=== PATIENT | female | born 1975 | race Caucasian/White ===

== ENCOUNTER 2018-01-21 17:42 | Emergency (ER) | payer BC ==
[~2018-01-21] VITALS: Ht 157.5 cm; Wt 64.9 kg
[~2018-01-21 17:42] MED LIST: ESCITALOPRAM OX20 MG PO; REBIF REBI44 MCG/0.5 SC; VITAMIN D31000 UNI2 PO
[2018-01-21 19:13] LABS: HEMOGLOBIN 12.4 G/DL (11.9-15.5); MCH 30.5 PG (29.0-34.0); MCHC 32.6 G/DL (30.0-36.0); MCV 93.4 FL (83-99); PLATELET COUNT 272 K/uL (156-360); RBC DIS.WIDTH-CV 12.6 % (11.8-14.6); RBC DIS.WIDTH-SD 43.5 % (39-53); RED BLOOD COUNT 4.07 M/uL (3.80-5.20); WHITE BLOOD COUNT 7.4 K/uL (4.1-10.2)
[2018-01-21 19:28] LABS: CHLORIDE 108 mEq/L (99-109); POTASSIUM 4.6 mEq/L (3.7-5.4); SODIUM 142 mEq/L (136-147)
[2018-01-21 19:30] LABS: GLUCOSE 93 mg/dL (70-99)
[2018-01-21 19:34] LABS: CREATININE 0.8 mg/dL (0.6-1.3); GFR ESTIMATE (CALCULATED) > 59 mL/min/
[2018-01-21 19:35] LABS: UREA NITROGEN (BUN) 16 mg/dL (9-23)
[2018-01-21 19:39] LABS: TROP-I INTERPRETATION NEGATIVE; TROPONIN-I < 0.01 ng/mL (0.0-0.30)
[2018-01-21 20:52] LABS: ALBUMIN 4.2 g/dL (3.2-4.8)
[2018-01-21 20:55] LABS: TOTAL PROTEIN 7.8 g/dL (6.4-8.3)
[2018-01-21 20:57] LABS: TOTAL BILIRUBIN 0.1 mg/dL (0.0-1.0)
[2018-01-21 20:58] LABS: ALKALINE PHOSPHATASE 68 IU/L (3-129)
[2018-01-21 21:00] LABS: AST (GOT) 25 IU/L (2-34); DIRECT BILIRUBIN 0.1 mg/dL (0.0-0.3)
[2018-01-21 21:16] LABS: ALT (GPT) 27 IU/L (3-49)
[2018-01-21 21:17] LABS: LIPASE 35 U/L (1.0-51.0)
[2018-01-21 21:22] LABS: QUANTITATIVE HCG < 4.0 MIU/ML
[2018-01-21 22:07] LABS: TROP-I INTERPRETATION NEGATIVE; TROPONIN-I < 0.01 ng/mL (0.0-0.30)
[2018-01-21 22:58] VITALS: BP 115/53
== END 2018-01-21 23:01 | disposition home or self-care (01) ==
LOC: EME 17:42 → RME 17:42
PROVIDERS: Physician Assistant
DX: R07.89 Other chest pain (principal); G35 Multiple sclerosis; K21.9 Gastro-esophageal reflux disease without esophagitis; Z82.49 Family history of ischemic heart disease and other diseases of the circulatory system; J45.909 Unspecified asthma, uncomplicated; F41.9 Anxiety disorder, unspecified; F32.9 Major depressive disorder, single episode, unspecified; Z87.891 Personal history of nicotine dependence; Z88.5 Allergy status to narcotic agent; Z88.2 Allergy status to sulfonamides; Z88.0 Allergy status to penicillin
CPT/HCPCS: 71046; 80048; 80076; 83690; 84484; 84702; 85027; 93005; 99281; 99284